=== PATIENT | female | born 1985 | race Caucasian/White ===

== ENCOUNTER → 2018-06-26 13:52 | Outpatient (CLI) | payer OTHER, SELFPAY ==
[2018-06-26 17:29] LABS: Chlamydia Trachomatis by PCR Negative (Negative); Neisserai gonorrhoeae by PCR Negative (Negative); Probe Check PASS; Sample Adequacy Control PASS; Specimen Processing Control PASS
== END ==
PROVIDERS: Visit Provider Obstetrics & Gynecology
DX: Z11.3 Encounter for screening for infections with a predominantly sexual mode of transmission (principal)
CPT/HCPCS: 87491; 87591

== ENCOUNTER → 2018-07-24 11:37 | Outpatient (CLI) | payer OTHER, SELFPAY ==
[2018-07-24 12:21] LABS: Color, Urine Yellow (Yellow); Glucose, Dipstick Normal (Normal); Ketone-Dipstick Negative (Negative); Leukocyte Esterase-Dipstick 100 /ul (Negative); Nitrite-Dipstick Negative (Negative); Occult Blood-Urine Negative /ul (Negative); Protein-Dipstick Negative (Negative); Urine Bilirubin Dipstick Negative (Negative); Urine Clarity Sl. Cloudy (Clear); Urine Urobilinogen Normal (Normal)
[2018-07-24 12:53] LABS: Absolute Lymphocyte Count 1.39 X10^3/ul (0.83-4.51); Absolute Neutrophil Count 8.5 X10^3/uL (2.0-7.7); Amphetamine Urine VISTA NEGATIVE (<1000 ng/mL); Barbiturate Urine VISTA NEGATIVE (< 200 ng/mL); Basophil# 0.03 X10^3/uL; Basophil% 0.3 % (0-1); Benzodiazepine Urine VISTA NEGATIVE (< 200 ng/mL); Cocaine Urine VISTA NEGATIVE (< 300 ng/mL); Ecstacy Urine VISTA NEGATIVE (< 500 ng/mL); Eosinophil# 0.17 X10^3/uL; Eosinophils% 1.6 % (0-5); Hematocrit 40.3 % (37-47); Hemoglobin 13.1 g/dl (12.0-15.0); Lymphocyte # 1.39 X10^3/ul (4.0); Lymphocyte % 12.9 % (19-41); Mean Corp Hgb Conc 32.5 g/gl (32-36); Mean Corpuscular Hgb 31.1 pg (27.0-32.0); Mean Corpuscular Volume 95.7 fL (81-99); Methadone Urine VISTA NEGATIVE (< 300 ng/mL); Monocyte# 0.71 X10^3/uL; Monocyte% 6.6 % (0-10); Neutrophil # 8.45 X10^3/uL (2.7-7.7); PCP Urine VISTA NEGATIVE (< 25 ng/mL); Platelet Count 251 K/mm3 (150-450); RBC Distribution Width CV 12.2 % (11.6-14.6); RBC Distribution Width SD 41.6 fl (35.1-43.9); Red Blood Count 4.21 M/mm3 (4.2-5.4); THC Urine VISTA NEGATIVE (< 50 ng/mL); Vista UDS pH Range 6; White Blood Count 10.8 K/mm3 (4.4-11.0)
[2018-07-24 12:57] LABS: POSITIVE COUNT NO; POSITIVE DIFFERENTIAL NO; POSITIVE MORPHOLOGY NO
[2018-07-24 13:27] LABS: Thyroid Stim Hormone (TSH) 2.13 uIU/mL (0.358-3.74)
[2018-07-24 14:04] LABS: HIV - WCH Non-Reactive (Nonreactive); Rubella IgG 186.6 IU/mL; Vitamin D,25 Hydroxy 25.8 ng/mL (29.95-100.01)
[2018-07-26 10:44] LABS: HEPATITIS B SURFACE AG Negative (Negative); Hep C Antibodies 0.1 s/co ratio (0.0-0.9); Toxoplasma Gondii IgG < 3.0 IU/mL (0.0-7.1)
[2018-07-28 01:31] LABS: Prenatal RPR NONREACTIVE (NONREACTIVE)
== END ==
PROVIDERS: Visit Provider Obstetrics & Gynecology
DX: Z34.81 Encounter for supervision of other normal pregnancy, first trimester (principal)
CPT/HCPCS: 36415; 80307; 81002; 82306; 84443; 85025; 86703; 86762; 86777; 86803; 87340

== ENCOUNTER 2018-10-14 19:18 | Emergency (ER) | payer OTHER, SELFPAY ==
[2018-10-14 19:19] VITALS: BP 105/63; PULSE 104; RESP 15; TEMP 36.7; BMI 25.4
[2018-10-14] MEDS: Ondansetron 4 MG/2 ML Vial IV (19:28)
[2018-10-14] MEDS: 0.9% Normal Saline 1,000 ML 1000 ML IV (19:54)
[2018-10-14] MEDS: Metoclopramide 10 MG/2 ML Vial 5 MG IV (19:55)
--- NOTE | 2018-10-14 20:15 | ED.VIS.GEN ---
History of Present Illness Chief Complaint: Nausea/Vomiting Informant: Patient Onset: Today - 1629 Context: Sudden Onset Timing: Continuous - Continuous sensation of nausea with vomiting Quality: Nausea and vomiting and pain Location: Epigastrium Current Severity: Presently no discomfort Maximum Severity: Moderate Worsened by: Vomiting Relieved by: Not vomiting Associated Symptoms: Second trimester Narrative: Patient is a 33-year-old female who presents with nausea and vomiting started 1630. She has had problems with nausea during but not vomiting. She had no complications or problems with her first . 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 She reports nasal congestion. She states she has history of allergies. Denies fever chills. She denies cough shortness of breath difficulty breathing. She denies dysuria or hematuria. She denies diarrhea. She denies rash. She denies intolerance to greasy or fried foods. There is no family history cholelithiasis. Prior similar symptoms: No Recent Illness/Hospitalization: No - Past Medical History (1) No significant past medical history Status: Acute Past Medical History - Allergies and Home Meds Allergies/Adverse Reactions: Allergies No Known Allergies Allergy (Verified 10/14/18 19:23) Primary Care Physician: Leila Parra MD [STAFF PHYSICIAN] - Past Medical History: None Surgical History: no surgical history Lives: Spouse/ Significant Other, With Family Smoking Status: Never smoker Alcohol: None Review of Systems General: Denies: Chills, Fever ENT: Reports: Rhinorrhea. Denies: Bilateral ear pain, Sore throat Respiratory: Denies: Dyspnea, Cough, Dyspnea on exertion Gastrointestinal: Reports: Abdominal pain, Nausea, Vomiting. Denies: Diarrhea, Constipation, Melena, Hematochezia, -, - Genitourinary: Reports: Frequency. Denies: Dysuria, Hematuria Musculoskeletal: Denies: Myalgias, Arthralgias, Neck pain, Back pain Skin: Denies: Rash Neurological: Denies: Headache, Weakness Hematologic: Denies: Easy bruising, Easy bleeding Allergy: Denies: Uticaria Physical Exam Vital Signs/Narrative: Vital Signs Temp Pulse Resp BP 10/14/18 19:19 98.0 F 104 H 15 105/63 Inital Vital Signs reviewed: Yes General: Well nourished, Well developed, No Acute Distress Head: Normocephalic, Atraumatic Eyes: Perrl, EOMI. Negative for: Pale conjunctiva, Scleral icterus, - ENT: TM's clear, Dry mucous membranes. Negative for: No rhinorrhea - Clear drainage noted with pale boggy nasal mucosa consistent with allergic rhinitis. Neck: Supple, Nontender, No lymphadenopathy, No JVD, - Cardiovascular: Regular rhythm, No murmurs, Normal S1, Normal S2, Tachycardia Respiratory: No distress, CTA bilaterally, Chest nontender Abdomen: Soft, Nondistended, Normal bowel sounds, No masses, Tender - Epigastric area. Negative for: Nontender, Guarding, Rebound tenderness, Hepatomegaly, Splenomegaly, Mass, Rovsig's sign, Ruffin's sign Back: Nontender. Negative for: CVA tenderness Extremities: Nontender, No edema Skin: Normal color, No rash Neurological: Alert, Oriented x3, Cranial nerves II-XII grossly intact, Normal Strength, Normal Sensation Psychological: Normal affect, Normal Mood Diagnostic/Tx/Re-eval - Medical Decision Making She received Zofran ODT in triage. IV was established he received 1 L of fluid. Since patient had no vomiting and will challenge patient with liquids. If she passes p.o. challenge will discharge with prescription for Zofran. Since nausea vomiting started a couple hours prior to presentation blood work was not obtained. Patient was able to drink a can of jori deion without emesis. She feels markedly better. Will discharge to home with appropriate home-going instructions ED Disposition - Plan for ED Patient: Disposition: Home or Assisted Living Diagnosis: Nausea and vomiting during prior to 22 weeks gestation Instructions: ED Nausea Vomiting Prescriptions: Ondansetron [Zofran Odt] 4 mg PO Q8H PRN PRN #10 tab PRN Reason: Nausea Referrals: Leila Prara MD [STAFF PHYSICIAN] - 1-2 Days if not improving
[2018-10-14 21:19] VITALS: RESP 18; O2SAT 98
== END 2018-10-14 21:19 | disposition home or self-care (01) ==
PROVIDERS: Emergency Provider Emergency Medicine
DX: O21.2 Late vomiting of pregnancy (principal); R10.13 Epigastric pain; Z3A.22 22 weeks gestation of pregnancy
CPT/HCPCS: 96361; 96374; 96375; 99283; J7030; A4216; J2405

== ENCOUNTER → 2018-11-16 16:29 | Outpatient (CLI) | payer OTHER, SELFPAY ==
[2018-11-16 17:08] LABS: Hematocrit 36.9 % (37-47); Hemoglobin 12.4 g/dl (12.0-15.0); Mean Corp Hgb Conc 33.6 g/gl (32-36); Mean Corpuscular Hgb 31.1 pg (27.0-32.0); Mean Corpuscular Volume 92.5 fL (81-99); Mean Platelet Vol. 10.9 fl (6.2-12.0); Platelet Count 215 K/mm3 (150-450); RBC Distribution Width CV 12.7 % (11.6-14.6); RBC Distribution Width SD 42.4 fl (35.1-43.9); Red Blood Count 3.99 M/mm3 (4.2-5.4)
[2018-11-16 17:09] LABS: Scan Indicated on CBC? Y/N NO
[2018-11-16 17:12] LABS: Glucose Challenge Gest 1H 50g 102 mg/dL (70-140)
== END ==
PROVIDERS: Visit Provider Obstetrics & Gynecology
DX: Z34.82 Encounter for supervision of other normal pregnancy, second trimester (principal)
CPT/HCPCS: 36415; 82950; 85027

== ENCOUNTER → 2019-01-15 17:37 | Outpatient (CLI) | payer OTHER, SELFPAY | PROVIDERS: Referring Provider Obstetrics & Gynecology; Visit Provider Obstetrics & Gynecology | DX: Z36.85 Encounter for antenatal screening for Streptococcus B (principal) | CPT/HCPCS: 87081 ==

== ENCOUNTER 2019-02-04 17:50 | Inpatient (IN) | payer OTHER, SELFPAY ==
[2019-02-04] VITALS (12 sets, daily range): BP systolic 87–116; BP diastolic 49–73; PULSE 81–93; RESP 16; TEMP 36.2–37.2; O2SAT 95–99; BMI 29.9
--- NOTE | 2019-02-04 18:05 | PCM.HP.OB ---
- Problem List (1) Breech presentation Status: Acute Qualifiers: Fetus number: single or unspecified fetus Qualified Code(s): O32.1XX0 - Maternal care for breech presentation, not applicable or unspecified History Date of Admission: 02/04/19 Final ARI: 02/10/19 Final ARI Source: US <20 weeks Gestational age: 39 Weeks and 1 Days History of this : This is a 34 year-old, G [2], P [1], at 39 1/7 weeks gestational age presents with c/o contractions x 1-2 hours. She has hx 3 hour labor prior. Medical History: Medical History (Last Reviewed 02/04/19 @ 19:54 by Valentina Guzman MD) Patient denies medical problems Z78.9 Surgical History: Surgical History (Last Reviewed 02/04/19 @ 19:54 by Valentina Guzman MD) Hx of tonsillectomy Z90.89 Allergies No Known Allergies Allergy (Verified 12/11/18 09:31) Home Medications: Home Medications No.52/Iron/FA/Dha [Lean Manufacturing Leader-Pnv-Dha Softgel] 1 each PO DAILY 10/14/18 Ranitidine [Zantac] 150 mg PO BID 02/04/19 Smoking Status: Never smoker Alcohol: None Number of Fetus(es): 1 - complete breech on US with JORDIN 18cm, anterior placenta on US NST - FHR Rate Baby A Baseline: 140 Variability:: Moderate Accelerations:: 15 x 15 Decelerations:: Variable NST Reactive:: Yes FHR Category:: Category II Uterine Activity:: 3/10 min History Past Pregnancies: Past Pregnancies Delivery Date GA/Weeks Outcome Route Weight Gender Labor Length Anesthesia Delivery Location 01/2012 39 Living [id number] F 3 Local [facility] Labs: Mom's Problem List Problem Status Onset Code Breech presentation Acute O32.1XX0 Mom's Labs & Results 02/04/19 02/04/19 18:15 18:15 WBC 12.4 H RBC 4.34 Hgb 13.6 Hct 40.1 MCV 92.4 MCH 31.3 MCHC 33.9 RDW Std Deviation 42.8 RDW Coeff of Juan 12.5 Plt Count 255 MPV 11.4 Immature Gran % (Auto) 1.500 H Neut % (Auto) 70.1 H Lymph % (Auto) 17.1 L [place] % (Auto) 8.7 Eos % (Auto) 2.1 Baso % (Auto) 0.5 Absolute Neuts (auto) 8.7 H Absolute Lymphs (auto) 2.11 Nucleated RBC % 0 Blood Type Pending Antibody Screen Pending Course Did the patient receive Yes care? Labs Blood Type: B RH: POSITIVE RPR/VDRL/Syphilis Nonreactive Rubella status Immune HbSAg Negative Date Done: 07/24/18 Chlamydia Negative Gonorrhea Negative HIV/AIDS Non-Reactive Group B Strep: Negative Current Obstetrical History Gestational Diabetes No Incompetent Cervix No Infertility No IUGR No Macrosomia No Hypertension/Pre-eclampsia No Placenta Previa/Abruption No PTL/PROM No Uterine anomaly No Oligohydramnios No Polyhydramnios No Multiple gestation No Past Medical History Asthma No Diabetes No Hypertension No Heart disease No Mitral valve prolapse No Neurologic/Seizure disorder/ No Migraines Kidney disease No Liver disease No Varicosities No Clotting disorders/Hx of DVT No Thyroid Dysfunction No Other medical diseases No Psychiatric disorders No Major trauma No Abnormal PAP smear Yes: Abnormal during this pregancy; No repeat PAP Sleep apnea No Mammogram in the last 2 years No Social History Marital Status: Alleged father Aaron Hx Smoking No Smoking Status Never smoker Expected Delivery Method: GIULIANA Section Physical Exam Vitals: AVSS General: Alert, Oriented x3, Cooperative, No apparent distress HEENT: Atraumatic, Normocephalic Cardiovascular: Regular rate, Regular Rhythm, Normal S1, Normal S2 Lungs: Clear to auscultation, Normal air movement Abdomen: Soft, Non Tender, Non-Distended, Gravid Extremities:: No edema Neurological: Neuro grossly intact Estimated gestational size: Appropriate for gestational size Presentation: Breech Cervix Dilation (cm): 2 Station: -2 Effacement (%): 60 Assessment/Plan All Active Problems (Last Reviewed 02/04/19 @ 19:54 by Valentina Guzman MD) No significant past medical history (Acute) Breech presentation (Acute) This is a 34 year-old, G [2], P [1], at 39 1/7 weeks gestational age in early labor with breech presentation -Recommend section, indications discussed with review of procedural benefit, risks including bleeding, infection, injury to abdominal organs including but not limited to bowel or bladder, scarring, future placenta accreta, VTE, need for other surgery including d&C or hysterectomy for life threatening bleeding. Also discussed ECV as alternative with discussion of how performed, success rate, risks including risk for failure, section, possibly emergently if ROM and cord prolapse or placental abruption or heart rate changes. Patient desires to proceed with section. Patient and spouse given opportunity to ask questions and questions answered to their satisfaction. -LARC declined.
[2019-02-04] MEDS: Lactated Ringers 1,000 ML 999 ML IV (18:15)
[2019-02-04] MEDS: Sodium Citrate/Citric Acid 30 ML UDC PO (18:17)
[2019-02-04 18:24] LABS: Absolute Lymphocyte Count 2.11 X10^3/uL (0.83-4.51); Absolute Neutrophil Count 8.7 X10^3/uL (2.0-7.7); Basophil# 0.06 X10^3/uL; Basophil% 0.5 % (0-1); Eosinophil# 0.26 X10^3/uL; Eosinophils% 2.1 % (0-5); Hematocrit 40.1 % (37-47); Hemoglobin 13.6 g/dL (12.0-15.0); Lymphocyte # 2.11 X10^3/ul (4.0); Lymphocyte % 17.1 % (19-41); Mean Corp Hgb Conc 33.9 g/dL (32-36); Mean Corpuscular Hgb 31.3 pg (27.0-32.0); Mean Corpuscular Volume 92.4 fL (81-99); Mean Platelet Vol. 11.4 fl (6.2-12.0); Monocyte# 1.08 X10^3/uL; Monocyte% 8.7 % (0-10); NRBC Flagged by Analyzer 0 % (0-5); Neutrophil # 8.66 X10^3/uL (2.7-7.7); Neutrophil % 70.1 % (47-70); Platelet Count 255 K/mm3 (150-450); RBC Distribution Width CV 12.5 % (11.6-14.6); RBC Distribution Width SD 42.8 fl (35.1-43.9); Red Blood Count 4.34 M/mm3 (4.2-5.4); White Blood Count 12.4 K/mm3 (4.4-11.0)
[2019-02-04] MEDS: Cefazolin 2 GM in 0.9% Normal Saline 100 ML IV (18:51)
--- NOTE | 2019-02-04 20:00 | PCM.OPRPT ---
Problem List (1) Breech presentation Status: Acute Qualifiers: Fetus number: single or unspecified fetus Qualified Code(s): O32.1XX0 - Maternal care for breech presentation, not applicable or unspecified Report of Operation Date of Procedure: 02/04/19 Pre-Operative Diagnosis: 39 1/7wga, labor, complete breech presentation Post-Operative Diagnosis: 39 1/7wga, labor, complete breech presentation Surgery/Procedure Performed:: Primary low transverse section Description of Surgical Findings:: Normal tubes and ovaries MALE , 3149g (6lb 15oz) senior lead java developer: Maria R Freire Type of Anesthesia:: Spinal Anesthesiologist: Mary Haro Specimen's removed: placenta to WP Estimated Blood Loss (mL): 900 Fluids Replaced: 1500 ml Description of Procedure: The patient was taken to the operating room and spinal analgesia was administered. She is placed in a dorsal supine position with left lateral tilt. The perineum and abdomen were prepped and draped in sterile fashion. And the spinal was found to be adequate. A Pfannenstiel incision was made using a scalpel and brought down to incise the subcutaneous tissue and rectus fascia at the midline. Subcutaneous tissue was bluntly dissected off the fascia laterally. The fascial incision was dissected laterally and cephalad using curved Marie scissors. The superior leaflet of the rectus fascia was grasped using Jocelyn clamps and bluntly dissected and sharply dissected from the underlying rectus muscle. In a similar fashion the inferior rectus fascia was dissected from the underlying muscle. The rectus muscles were bluntly at the midline. The peritoneum was identified and entered [sharply]. The bladder blade was placed into the abdomen and the vesicouterine peritoneal fold identified. The fold was incised and a bladder flap created. Bladder blade was then repositioned to the abdomen. A low transverse hysterotomy was made using the [Metzenbaum scissors] to level of the membranes. The hysterotomy was extended bluntly cephalad and caudad. The membranes were then ruptured revealing clear fluid. The extremities were grasped and delivered via the hysterotomy, was placed over the sacrum and the was delivered to the level of the shoulders. The right and left arms were swept and the head delivered spontaneously. The infant mouth was suctioned. Cord was doubly clamped and cut and the was passed to the waiting nursery personnel. The placenta was expressed and appeared intact on inspection. Uterus of was cleared of debris. The hysterotomy was then repaired using 0 Vicryl running lock suture. A second imbricating layer was also placed for additional hemostasis. The bladder blade was removed. The anterior cul-de-sac was cleared of debris. The peritoneum and rectus muscles were reapproximated using 2-0 Vicryl running suture. The rectus fascia was closed using 0 stratafix running suture. Small capillary bleeding the subcutaneous tissue was controlled using the Bovie device. The subcutaneous tissue was reapproximated using 2-0 Vicryl. The skin was closed using 4-0 Monocryl subcuticularly the CLEARANCE DIVER under my supervision. A Mepilex occlusive dressing was placed over the incision. The fundus was firm. The patient was then transferred to the recovery room without complication. Sponge, instrument, and needle counts were correct ?2. - Complications None - Admit VTE Documentation VTE Present on Admission: No VTE Mechan Device Prophylaxis: SCD's VTE Pharm Prophylaxis ordered?: No
[2019-02-04] MEDS: Oxytocin 30 units/NS 500 ml 30 UNITS/500 ML IV.SOLN 167 UNITS IV (20:10)
--- NOTE | 2019-02-04 20:14 | DCINST_ITS ---
<Leila Parra - Last Filed: 02/05/19 07:53> Additional Instructions: If you experience any of the following, contact your healthcare provider. * Bleeding that soaks a pad every hour for 2 hours * Fever 100.4 or higher * Unrelieved incision or abdominal pain * Swelling, redness, discharge or bleeding from your incision or epi siotomy site * Your incision begins to separate * Problems urinating (including inability to urinate or burning while urinating). * Visual changes * Severe headache * Flu-like symptoms * Pain or redness in one of both of your breasts * Pain, warmth, tenderness or swelling in your legs, especially the calf area * Frequent nausea and vomiting * Symptoms of depression or anxiety If you experience any of the following, call 911 or go to the nearest Emergency Room. * Chest pain * Problems breathing * Seizure activity * Partial or complete paralysis of a body part, slurred speech, weakness or drooping of the face, or a sudden inability to walk or hold your balance Allergies/Adverse Reactions: Allergies No Known Allergies Allergy (Verified 12/11/18 09:31) Medications to take at Discharge No.52/Iron/FA/Dha [Male Model-Pnv-Dha Softgel] 1 each PO DAILY 10/14/18 Ibuprofen [Motrin] 600 mg PO Q8H PRN PRN #30 tab 02/04/19 Oxycodone [Oxyir] 5 mg PO Q6H PRN PRN 3 Days #15 tab 02/05/19 Polyethylene Glycol 3350 [Miralax] 17 gm PO DAILY PRN #14 packet 02/05/19 The following prescriptions were given: Polyethylene Glycol 3350 [Miralax] 17 gm PO DAILY PRN #14 packet PRN Reason: Constipation Transmission Status: Received by [id number] Ibuprofen [Motrin] 600 mg PO Q8H PRN PRN #30 tab PRN Reason: Pain Transmission Status: Received by [id number] Oxycodone [Oxyir] 5 mg PO Q6H PRN PRN 3 Days #15 tab PRN Reason: Mod-Severe Pain (4-10/10) Transmission Status: Received by [id number] Follow-Up: Call to make an appointment with your doctor for an incision check in 1-2 weeks. You will also need a 6 week post- follow up appointment. Test results from this visit will be discussed in further detail at your follow- up appointment, if applicable. Primary Care Physician: Care Physician,No Primary [Primary Care Provider] - Proposed Discharge Date: 02/07/19 <Valentina Guzman - Last Filed: 02/07/19 07:51> Discharge Diet: No Restrictions Discharge Activity: Return to Normal Activity, May not drive while taking narcotic pain medications., May Shower May resume sexual activity in: 4-6 weeks Lifting Restrictions: 10 lb Suture Line Care: Avoid Pulling/Pushing Remove Dressing in (days):: 3 Cleanse incision/area with: Soap & Water Additional Instructions: If you experience any of the following, contact your healthcare provider. * Bleeding that soaks a pad every hour for 2 hours * Fever 100.4 or higher * Unrelieved incision or abdominal pain * Swelling, redness, discharge or bleeding from your incision or episiotomy site * Your incision begins to separate * Problems urinating (including inability to urinate or burning while urinating). * Visual changes * Severe headache * Flu-like symptoms * Pain or redness in one of both of your breasts * Pain, warmth, tenderness or swelling in your legs, especially the calf area * Frequent nausea and vomiting * Symptoms of depression or anxiety If you experience any of the following, call 911 or go to the nearest Emergency Room. * Chest pain * Problems breathing * Seizure activity * Partial or complete paralysis of a body part, slurred speech, weakness or drooping of the face, or a sudden inability to walk or hold your balance Follow-Up: Call to make an appointment with your doctor for an incision check in 1-2 weeks. You will also need a 6 week post- follow up appointment. Test results from this visit will be discussed in further detail at your follow- up appointment, if applicable. Please Follow Up With: Leila Parra MD When: 1-2 weeks
[2019-02-04] MEDS: Lactated Ringers 1,000 ML 100 ML IV (23:09)
[2019-02-05] VITALS (14 sets, daily range): BP systolic 83–100; BP diastolic 44–65; PULSE 81–96; RESP 16–18; TEMP 36.9–38.2; O2SAT 97–100
[2019-02-05] MEDS: Ketorolac 30 MG/ML Syringe IV ×4 (02:17→23:01)
--- NOTE | 2019-02-05 02:54 | NURSING ---
mother not warm to touch, verifying temp orally, 98.6
--- NOTE | 2019-02-05 04:26 | NURSING ---
Indwelling urinary catheter present. WNL.
[2019-02-05 04:48] LABS: Hemoglobin 11.6 g/dL (12.0-15.0); Mean Corp Hgb Conc 33.1 g/dL (32-36); Mean Corpuscular Hgb 31.1 pg (27.0-32.0); Mean Corpuscular Volume 93.8 fL (81-99); Mean Platelet Vol. 10.7 fl (6.2-12.0); Platelet Count 191 K/mm3 (150-450); RBC Distribution Width CV 12.7 % (11.6-14.6); RBC Distribution Width SD 43.9 fl (35.1-43.9); Red Blood Count 3.73 M/mm3 (4.2-5.4); White Blood Count 16.7 K/mm3 (4.4-11.0)
--- NOTE | 2019-02-05 07:48 | PCM.PN.OB ---
Patient Problems: Active and Suspected Problems (Last Reviewed 02/04/19 @ 19:54 by Valentina Guzman MD) Breech presentation (Acute) Subjective: POD#1 Primary C Section Breech Doing well. Pain control adequate. Has had N/V with Vicodin prior. Breast feeding. Baby is doing well. Asking about showering, activity restrictions, return to work. - Physical Exam General: Alert, Oriented x3, Cooperative, No apparent distress HEENT: Atraumatic, EOMI Neck: Supple Abdomen: Soft - Minimally tender c/w postop status. Skin: Incision - Mepilex CDI. No shadow drainage. Psych/Mental Status: Normal Affect Vital Signs Temp Pulse Resp BP Pulse Ox 98.4 F 92 18 88/51 L 97 02/05/19 04:11 02/05/19 07:06 02/05/19 07:06 02/05/19 04:11 02/05/19 07:06 Oxygen Delivery Method Room Air Weight: 74.389 kg Body Mass Index (BMI) 29.9 Intake and Output for Last 24 Hours 02/03/19 02/04/19 02/05/19 23:59 23:59 23:59 Intake Total 2707.72 / 2707.72 708.33 / 708.33 Output Total 2250 / 2250 1999 / 1999 Balance 457.72 / 457.72 -1291.67 / -1291.67 Laboratory Tests Past 24 Hrs 02/04/19 02/04/19 02/05/19 18:15 18:15 04:30 WBC 12.4 H 16.7 H RBC 4.34 3.73 L Hgb 13.6 11.6 L Hct 40.1 35.0 L MCV 92.4 93.8 MCH 31.3 31.1 MCHC 33.9 33.1 RDW Std Deviation 42.8 43.9 RDW Coeff of Juan 12.5 12.7 Plt Count 255 191 MPV 11.4 10.7 Immature Gran % (Auto) 1.500 H Neut % (Auto) 70.1 H Lymph % (Auto) 17.1 L [place] % (Auto) 8.7 Eos % (Auto) 2.1 Baso % (Auto) 0.5 Absolute Neuts (auto) 8.7 H Absolute Lymphs (auto) 2.11 Nucleated RBC % 0 Blood Type B POSITIVE Antibody Screen NEGATIVE Medical Necessity - Tobacco Use Smoking Status: Never smoker Assessment/Plan All Active Problems (Last Reviewed 02/04/19 @ 19:54 by Valentina Guzman MD) No significant past medical history (Acute) Breech presentation (Acute) POD#1 Breech presentation, Primary C section Doing well. Inc diet and activity as tolerated. Begin po meds. D/C Bland later today for voiding trial. S/L IV for continued Toradol. Continue routine postop care. May try abdominal binder. Reviewed return to usual activities.
[2019-02-05] MEDS: 0.9% Saline Lock 10 ML Syringe IV (08:52)
[2019-02-05] MEDS: Senna/Docusate Sodium 1 Tablet PO (08:52)
--- NOTE | 2019-02-05 10:10 | NURSING ---
Patient was asymptomatic, denies any dizziness
[2019-02-05] MEDS: Famotidine 20 MG Tablet PO ×2 (11:37→23:20)
[2019-02-05] MEDS: Prenatal Vits Tablet 1 TABLET PO (11:37)
[2019-02-06 02:00] VITALS: BP 94/57; PULSE 86; RESP 16; TEMP 37
[2019-02-06] MEDS: Ketorolac 30 MG/ML Syringe IV ×3 (03:56→17:12)
--- NOTE | 2019-02-06 08:04 | PCM.PN.OB ---
Patient Problems: Active and Suspected Problems (Last Reviewed 02/04/19 @ 19:54 by Valentina Guzman MD) Breech presentation (Acute) Subjective: POD#2 Primary C section for breech presentation, labor. More cramping and notes inc pain with movement and out of bed. Breast feeding. Overall feeling better today. Not using abdominal support band yet. - Physical Exam General: Alert, Oriented x3, Cooperative, No apparent distress HEENT: Atraumatic, EOMI Abdomen: Soft - Fundus firm moderately tender c/w postop status. Inferior to umbilicus Skin: Incision - Mepilex CDI Neurological: Cranial nerves II-XII grossly intact Psych/Mental Status: Normal Affect Vital Signs Temp Pulse Resp BP Pulse Ox 98.6 F 86 16 94/57 L 98 02/06/19 02:00 02/06/19 02:00 02/06/19 02:00 02/06/19 02:00 02/05/19 20:00 Oxygen Delivery Method Room Air Weight: 74.389 kg Body Mass Index (BMI) 29.9 Intake and Output for Last 24 Hours 02/04/19 02/05/19 02/06/19 23:59 23:59 23:59 Intake Total 2707.72 / 2707.72 985.00 / 985.00 Output Total 2250 / 2250 3950 / 3950 Balance 457.72 / 457.72 -2965.00 / -2965.00 Medical Necessity - Tobacco Use Smoking Status: Never smoker Assessment/Plan All Active Problems (Last Reviewed 02/04/19 @ 19:54 by Valentina Guzman MD) No significant past medical history (Acute) Breech presentation (Acute) POD#2 Breech presentation, Primary C section Stable postop. Continue routine postop care. Plan dischg home for 02/07/19
[2019-02-06 09:15] VITALS: BP 92/55; PULSE 66; RESP 18; TEMP 36.6; O2SAT 97
[2019-02-06] MEDS: Acetaminophen 500 MG Tablet 1000 MG PO (09:25)
[2019-02-06] MEDS: Prenatal Vits Tablet 1 TABLET PO (10:46)
[2019-02-06] MEDS: 0.9% Saline Lock 10 ML Syringe IV ×2 (10:46→17:12)
[2019-02-06] MEDS: Famotidine 20 MG Tablet PO ×2 (11:39→21:53)
[2019-02-06 15:10] VITALS: BP 91/62; PULSE 68; RESP 16; TEMP 37.1; O2SAT 97
[2019-02-06 19:00] VITALS: BP 90/55; PULSE 69; RESP 16; TEMP 36.9
[2019-02-07 02:00] VITALS: BP 103/74; PULSE 73; RESP 16; TEMP 37
[2019-02-07] MEDS: Acetaminophen 500 MG Tablet 1000 MG PO (02:43)
--- NOTE | 2019-02-07 06:20 | NURSING ---
Reviewed and agreed with Steffanie Angeles RN charting.
--- NOTE | 2019-02-07 07:55 | NURSING ---
pt's skin distal to umbilicus and proximal to mepilex dressing red and irritated. pt states it itches. Dr. Parra present and notified. mepilex dressing removed per Dr. Parra and replaced with telfa and paper tape. pt told per Dr. Parra to apply hydrocortisone cream to area
[2019-02-07] MEDS: Hydrocortisone 2.5% Crm 1 APPLIC TOPICAL (08:09)
--- NOTE | 2019-02-07 08:15 | PCM.PN.OB ---
Patient Problems: Active and Suspected Problems (Last Reviewed 02/04/19 @ 19:54 by Valentina Guzman MD) Breech presentation (Acute) Subjective: Pain well controlled, tolerating diet well, passing flatus, has had 2 bowel movements; itching and redness noted above incision dressing, worse last night, improving today; well; looking forward to discharge home Objective: Fundus firm, midline, u/1, lochia scant; ncision SAWYER, D/I, well approximated, no erythema or edema; skin at panty line mildly irritated; - Physical Exam General: Alert, Oriented x3, Cooperative, No apparent distress HEENT: PERRLA, EOMI Oral: Moist Mucosa Neck: Supple Lungs: Clear to auscultation, Normal air movement Cardiovascular: Regular rate, Regular Rhythm Abdomen: Bowel Sounds Present, Soft, Non Tender, Non-Distended Extremities: No edema, No Calf Tenderness Musculoskeletal: No Tenderness to Palpation of Joints or Extremities Neurological: Cranial nerves II-XII grossly intact, Deep Tendon Reflexes 2+/4 and Symmetrical Vital Signs Temp Pulse Resp BP Pulse Ox 98.6 F 73 16 103/74 97 02/07/19 02:00 02/07/19 02:00 02/07/19 02:00 02/07/19 02:00 02/06/19 15:10 Oxygen Delivery Method Room Air Weight: 164 lb Body Mass Index (BMI) 29.9 Intake and Output for Last 24 Hours 02/05/19 02/06/19 02/07/19 23:59 23:59 23:59 Intake Total 985.00 / 985.00 Output Total 3950 / 3950 Balance -2965.00 / -2965.00 Medical Necessity - Tobacco Use Smoking Status: Never smoker Assessment/Plan All Active Problems (Last Reviewed 02/04/19 @ 19:54 by Valentina Guzman MD) No significant past medical history (Acute) Breech presentation (Acute) Assessment: POD #3, normal involution, incision healing well; mild skin irritation above site of previous dressing, resolving; well Plan: Cortisone cream to skin irritation PRN Discharge instructions discussed Discharge home today RTO two weeks for follow up
--- NOTE | 2019-02-07 08:22 | PCM.DC.SUM ---
Discharge Date and Diagnosis - Problem List Patient Problems: Active and Suspected Problems (Last Reviewed 02/04/19 @ 19:54 by Valentina Guzman MD) Breech presentation (Acute) Date of Admission: 02/04/19 Date of Discharge: 02/07/19 - Primary Discharge Diagnosis Active and Suspected Problems (Last Reviewed 02/04/19 @ 19:54 by Valentina Guzman MD) Breech presentation (Acute) Hospital Course and Treatment Operations: - - Primary breech presentation, labor Summary of Care Provided: The patient is a 34 year old admitted with breech presentation in labor at 39w 1d; primary c section; procedure uncomplicated, delivered a brand viable make; normal post operative course; preoperative Hgb 13.6 g/dl, postoperative 11.6g/dl. Mild skin reaction above site of abdominal dressing resolving; Discharge home POD #3 in stable condition Patient Problems: Active and Suspected Problems (Last Reviewed 02/04/19 @ 19:54 by Valentina Guzman MD) Breech presentation (Acute) - Physical Exam Vital Signs Temp Pulse Resp BP Pulse Ox 98.6 F 73 16 103/74 97 02/07/19 02:00 02/07/19 02:00 02/07/19 02:00 02/07/19 02:00 02/06/19 15:10 Oxygen Delivery Method Room Air Weight: 164 lb Body Mass Index (BMI) 29.9 Intake and Output for Last 24 Hours 02/05/19 02/06/19 02/07/19 23:59 23:59 23:59 Intake Total 985.00 / 985.00 Output Total 3950 / 3950 Balance -2965.00 / -2965.00 Discharge Diet: No Restrictions Discharge Activity: Return to Normal Activity, May not drive while taking narcotic pain medications., May Shower May resume sexual activity in: 4-6 weeks Suture Line Care: Avoid Pulling/Pushing Remove Dressing in (days):: 3 Cleanse incision/area with: Soap & Water Home Medications: Medications to take at Discharge No.52/Iron/FA/Dha [Rubber Calender Helper-Pnv-Dha Softgel] 1 each PO DAILY 10/14/18 Ibuprofen [Motrin] 600 mg PO Q8H PRN PRN #30 tab 02/04/19 Oxycodone [Oxyir] 5 mg PO Q6H PRN PRN 3 Days #15 tab 02/05/19 Polyethylene Glycol 3350 [Miralax] 17 gm PO DAILY PRN #14 packet 02/05/19 Following Prescrptions Were Given to Patient: Polyethylene Glycol 3350 [Miralax] 17 gm PO DAILY PRN #14 packet PRN Reason: Constipation Transmission Status: Received by [id number] Ibuprofen [Motrin] 600 mg PO Q8H PRN PRN #30 tab PRN Reason: Pain Transmission Status: Received by [id number] Oxycodone [Oxyir] 5 mg PO Q6H PRN PRN 3 Days #15 tab PRN Reason: Mod-Severe Pain (4-03/01) Transmission Status: Received by [id number] Primary Care Physician: Care Physician,No Primary [Primary Care Provider] - Please Follow Up With: Leila Parra MD When: 1-2 weeks Medical Necessity - Tobacco Use Smoking Status: Never smoker Meaningful Use Info Meaningful Use Diagnoses (Choose all that apply): None applicable
[2019-02-07 08:40] VITALS: BP 104/72; PULSE 67; RESP 16; TEMP 37.1
== END 2019-02-07 11:25 | disposition home or self-care (01) | DRG 788 ==
LOC: WPOUT 17:53
PROVIDERS: Admitting Provider Obstetrics & Gynecology; Visit Provider Obstetrics & Gynecology
DX: O32.1XX0 Maternal care for breech presentation, not applicable or unspecified (principal); O76 Abnormality in fetal heart rate and rhythm complicating labor and delivery; Z3A.39 39 weeks gestation of pregnancy; Z37.0 Single live birth
CPT/HCPCS: 59025; 59050; 76815; 85025; 85027; 86850; 86900; 86901; 99218; J7120; A4216; G0378; J2405

== ENCOUNTER → 2019-03-19 17:17 | Outpatient (CLI) | payer OTHER, SELFPAY ==
[2019-02-04 17:54] VITALS: BMI 29.9
[2019-03-23 12:07] LABS: Age Gdln ACOG Testing 30-65 (.)
[2019-03-23 12:42] LABS: HPV APTIMA, High Risk Positive (Negative)
[2019-04-10 11:05] LABS: HPV Reflexed? YES, CHARGE PATIENT
== END ==
PROVIDERS: Referring Provider Obstetrics & Gynecology; Visit Provider Obstetrics & Gynecology
DX: Z12.4 Encounter for screening for malignant neoplasm of cervix (principal)
CPT/HCPCS: 87624; 88175; G0145

== ENCOUNTER → 2019-04-17 16:16 | Outpatient (CLI) | payer OTHER, SELFPAY ==
[2019-02-04 17:54] VITALS: BMI 29.9
--- NOTE | 2019-04-17 | IMM_PTH ---
PATIENT: OSWALD SWARTZ LOC: [facility] U#:[id number] AGE/SX: 40/F ROOM: RE04/17/[address]: Dr. Leila Parra MD : 1985 BED: DIS: SPEC #: [id number] RECD: 04/20/19 11:37 STATUS: KAYA REQ #: [id number] EVERT: 04/17/19 00:[address]: Leila Parra DEPT: IMMUNOHISTOCHEMISTRY RECD BY: Inga Orozco ENTERED: 04/20/19 11:38 SP TYPE: IMMUNO OTHR DR: No Primary Care Phys Tissues: A - Uterine cervix, NOS Procedures: p16 (initial) KI-67 (add) PHYSICIAN & INSTITUTION [place] [id number] SPECIMEN INFORMATION: Tissue Source: A - Cervix Clinical Info: ASCUS, positive HPV Specimen Number: [id number] CPT code: 58621, 23051 METHODOLOGY: Deparaffinized sections of prefer/formalin-fixed tissue or PAP/DQ stained slides are incubated with monoclonal/polyclonal antibodies/oligonucleotide probes. Localization is made via biotin free immunoperoxidase method. Appropriate controls are performed and reacted as expected. Results on target cell population are indicated in the following table: RESULTS: ANTIBODY / CLONE RESULT Block A P16 (E6H4) positive, focal block staining Ki-67 (30-9) positive, low These tests were developed and their performance characteristics determined by [facility]. They may not have been cleared or approved by the U.S. Food and Drug Administration. The FDA has determined that such clearance or approval is not necessary. The above immunohistochemical/dualISH markers are ordered and reviewed by the Pathologist. INTERPRETATION: A. Cervix, biopsy: Focal mild to moderate squamous dysplasia. SJ:baron 04/20/19 Case has been reviewed in consultation with Dr. Chua who concurs with the above diagnosis. IDC:AM
--- NOTE | 2019-04-17 14:00 | CER_PTH ---
PATIENT: OSWALD SWARTZ LOC: [facility]#:[id number] AGE/SX: 40/F ROOM: RE04/17/[address]: Dr. Leila Parra MD : 1985 BED: DIS: SPEC #: [id number] RECD: 04/17/19 15:56 STATUS: KAYA MARY #: [id number] EVERT: 04/17/19 14:[address]: Leila Parra DEPT: SURGICAL PATHOLOGY RECD BY: Kathrine Cassidy ENTERED: 04/18/19 09:25 SP TYPE: CERV OTHR DR: No Primary Care Phys Tissues: A - Uterine cervix, NOS B - Endocervical Procedures: Surgery Specimen Level IV HEADER OPERATION: Colposcopy PRE-OP DIAGNOSIS: ASCUS, positive HPV TISSUE SUBMITTED: A. Cervical, B. ECC MICROSCOPIC DIAGNOSIS A. Cervix, biopsy: Focal mild to moderate squamous dysplasia with HPV changes (HGSIL, DANIEL I-II). Chronic inflammation and squamous metaplasia. See comment. B. ECC: Fragments of benign endocervical epithelium, benign endocervical mucosa, blood and mucous, negative for dysplasia. EVE:baron 04/20/19 COMMENT A. Immunohistochemistry ([id number]) for surrogate HPV marker (p16) supports the above diagnosis. This case has been reviewed in consultation with Dr. Chua who concurs with the above diagnosis. MICROSCOPIC DESCRIPTION Slides are reviewed. GROSS DESCRIPTION A - Received in fixative is one container labeled with the patient's name and designated cervical. The specimen consists of two irregular fragments of light navas soft tissue that in aggregate measure 0.8 x 0.5 x 0.1 cm. The specimen is totally submitted in one cassette. B - Received in fixative is one container labeled with the patient's name and designated ECC. The specimen consists of multiple fragments of hemorrhagic mucoid tissue that in aggregate measure 1 x 1 x 0.1 cm. The specimen is totally submitted in one cassette. / EVE:baron 04/18/19 TC:5 CPT: 39035 x2
== END ==
PROVIDERS: Referring Provider Obstetrics & Gynecology; Visit Provider Obstetrics & Gynecology
DX: R87.610 Atypical squamous cells of undetermined significance on cytologic smear of cervix (ASC-US) (principal)
CPT/HCPCS: 88305; 88341; 88342

== ENCOUNTER 2019-05-08 10:57 | Day surgery (SDC) | payer OTHER, SELFPAY ==
[2019-02-04 17:54] VITALS: BMI 29.9
--- NOTE | 2019-04-30 08:06 | PCM.HPOB.BLA ---
History and Physical Date of Admission: 05/08/19 HISTORY OF PRESENT ILLNESS: Lauren Garcia, a 34 year old female 2 0 0 0 2, presented for: -- Here for LEEP cervical biopsy in OR due to abnormal paps and moderate cervical dysplasia on colposcopic biopsy. 06/06/18 pap: ASCUS cannot R/o higher gr lesion. 11/2017 pap ASCUS with + hi risk HPV (but not 16, 18) 02/2019 --pap ASCUS with +hi risk HPV. 04/17/19 COLPOSCOPY -- Mild to mod dysplasia. LEEP recommended. EB ALLERGIES: No Known Drug Allergies MEDICATIONS HISTORY: None. PAST HISTORY: Breast/Ovarian/Colon Cancers - MGM - ovarian cancer Infections - Bronchitis, Chicken pox and yeast inf Illnesses - constipation and seasonal allergies- mild Accidents - None History of Abnormal PAPS - pt had 2nd abnormal pap test on 06/06/2018 [facility]. Hospitalizations - Childbirth SURGICAL HISTORY: . 02/04/2019 Summer Rohith Wade MD (breech) MENSTRUAL HISTORY: LMP Known?- Approximate-Month Known Amount/Duration - 5-7-days, Regularity - Regular, Frequency - 28 days, LMP - 03/27/19 PAST PREGNANCIES: Total Pregnancies - 3; Full Term Pregnancies - 2; Premature - 0; Abortions, Induced - 0; Abortions, Spontaneous - 0; Ectopics - 0; Multiple Births - 0; Living Children - 2 FAMILY HISTORY: Mother - Type 2 Diabetes; Mother - Heart Attack; Maternal Grandparent - Ovarian Carcinoma; Paternal Grandparent - Ovarian Carcinoma; SOCIAL HISTORY: Alcohol Use - RARELY not while Smoking - Never Diet - balanced Diet, caffeine < 2 drinks per day and Tries for 1-2 liters daily Lifestyle - moderate stress lifestyle Exercise - none and Walk 20 min day. Seat Belt Use - always Employer - [employer] 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 Hours Worked - 40 hours per week Spouse-Sig Other Name - FOB - Nelson Spouse-Sig Other Occupation - Air Director [employer] Spouse-Sig Other Phone No - [phone] Children Name(s) - Mahin Ames ('19) Control - condoms PHYSICAL EXAMINATION CONSTITUTIONAL - NAD, well nourished, and well developed HEENT - Normocephalic, PERRLA, EOMI NECK - no nuchal rigidity EXTREMITIES - No edema or calf tenderness NEUROLOGICAL - Cranial nerves II-XII grossly intact PSYCHIATRIC - A and O to time, place, person, mood and affect ASSESSMENT: 1. Moderate Cervical Dysplasia 2. Cervical High Risk Human Papillomavirus (hpv) DNA Test Positive PLAN BY DIAGNOSIS: 1. Cervical High Risk Human Papillomavirus (hpv) DNA Test Positive and Moderate Cervical Dysplasia ASCUS paps, positive hi risk HPV cannot r/o higher grade lesion. Colposcopy showed mild to moderate dysplasia. LEEP in OR planned. Reviewed R,B,A, anticipated preop, operative and postop recovery including activity restrictions Plan to follow up with pap q 4 mo for next year to ensure adequate treatment / resolution
[2019-05-08] VITALS (7 sets, daily range): BP systolic 104–111; BP diastolic 54–70; PULSE 66–76; RESP 15–16; TEMP 36.2–36.9; O2SAT 99–100; BMI 24.7
[2019-05-08 11:30] LABS: Internal QC Validated? YES +Cl - CLEAR BKGD
[2019-05-08] MEDS: Lactated Ringers 1,000 ML 100 ML IV (11:35)
[2019-05-08 11:41] LABS: Pregnancy, Urine Negative Negative
--- NOTE | 2019-05-08 12:07 | DCINST_ITS ---
Discharge Diet: No Restrictions Discharge Activity: May Shower, May Take a Tub Bath Return to work on:: 05/09/19 May resume sexual activity in: 2 weeks Call your doctor if you observe: Fever of 101 or Higher, Inability to have a bowel movement, Uncontrolled pain Additional Instructions: You may take either Aleve, Tylenol, or ibuprofen for pain as needed. Allergies/Adverse Reactions: Allergies No Known Allergies Allergy (Verified 05/08/19 11:26) Medications to take at Discharge Ibuprofen [Motrin] 600 mg PO Q8H PRN PRN #30 tab 02/04/19 Multivitamin [Multiple Vitamins] 1 ea PO DAILY 05/04/19 Primary Care Physician: OSWALD SHERWOOD [Other] Test Results: Test results from this visit will be discussed in further detail at your follow- up appointment, if applicable. Please Follow Up With: Vickie Cordova CNM - [phone] When: 4 months for pap smear Proposed Discharge Date: 05/08/19
[2019-05-08] MEDS: FERRIC SUBSULFATE 8 GM SOLN (12:30)
[2019-05-08] MEDS: Iodine/Potassium Iodide 14ML Bottle 1 DRP TOPICAL (12:30)
--- NOTE | 2019-05-08 12:30 | CER_PTH ---
PATIENT: OSWALD SWARTZ LOC: [facility] U#:[id number] AGE/SX: 34/F ROOM: RE05/08/[address]: Dr. Leila Parra MD : 1985 BED: DIS: 05/08/2019 SPEC #: [id number] RECD: 05/08/19 14:58 STATUS: KAYA MARY #: [id number] EVERT: 05/08/19 12:[address]: Leila Parra DEPT: SURGICAL PATHOLOGY RECD BY: Kathrine Cassidy Tissues: UTERINE CERVIX LEEP Procedures: Surgery Specimen Level V HEADER OPERATION: LEEP cone PRE-OP DIAGNOSIS: Cervical dysplasia TISSUE SUBMITTED: LEEP cone cervical biopsy MICROSCOPIC DIAGNOSIS Cervix, LEEP cone biopsy: Negative for dysplasia. Focal chronic inflammation. See comment. EVE:baron 05/10/19 COMMENT Please make reference to previous specimen ([id number]) cervix, biopsy with diagnosis of focal mild to moderate squamous dysplasia with HPV changes. MICROSCOPIC DESCRIPTION Slides are reviewed. GROSS DESCRIPTION Received in fixative is one container labeled with the patient's name and designated LEEP cone cervical biopsy. The specimen consists of a navas, indurated piece of tissue consistent with LEEP conization measuring 2 x 1.5 cm and up to 1 cm in diameter. The specimen is not oriented. The cervical opening is slit-like in contour. No mucosal lesion is identified. The nonmucosal surface is inked black. The endocervical margin is inked blue. The specimen is radially sectioned and submitted entirely in four cassettes. Each cassette contains one quadrant. / SJ:baron 05/09/19 TC:3 CPT: 11689
--- NOTE | 2019-05-08 12:54 | PCM.OPRPT ---
Report of Operation Date of Procedure: 05/08/19 Pre-Operative Diagnosis: mild to moderate cervical dysplasia Post-Operative Diagnosis: Same Surgery/Procedure Performed:: LEEP cervical biopsy Description of Surgical Findings:: Lugol's nonstaining area noted at ectocervix. Nonparous appearing cervix no gross lesions noted. Type of Anesthesia:: Local MAC Anesthesiologist: Umer Gao MD Specimen's removed: LEEP cone biopsy Drains: red lester prior to surgery. 30 cc clear yellow urine Estimated Blood Loss (mL): 10 Fluids Replaced: LR Description of Procedure: After the risks, benefits, alternatives of the procedure were reviewed with the patient, informed consent was obtained. The patient was taken to the operating room with an IV running and placed in dorsal supine position on the operating table. She was given IV sedation, and then repositioned to the dorsal lithotomy position and was prepped and draped in the usual sterile fashion. A coated Graves speculum was placed, the cervix was identified and a 10 cc paracervical block of 1% lidocaine was instilled at the 2:00 4:00 8:00 and 10:00 positions. Lugol's was applied to the cervix. A Lugol's nonstaining area was noted at the ectocervix. A loop electrical excision procedure was then performed at a power of 50/50 with a blend of 1 between cut and coag. The biopsy was performed in a single pass. Excellent hemostasis was noted. A ball cautery was then used to cauterize the margins of the cervix at the biopsy site. Monsel's was applied to the cervix. Excellent hemostasis was noted. A sponge stick was used to remove any remaining tissue and blood from the upper vagina and cervix. All instruments were then removed from the vagina. The patient was awakened from her IV sedation, and then transferred to her recovery room bed in stable condition after tolerating the procedure well. Sponge, instrument, and needle counts were correct x2. Medications given intraoperatively included: 10 cc of 1% lidocaine as a paracervical block. For complete listing of medications given intraoperatively, please see the anesthesia record. - Complications none - Admit VTE Documentation VTE Present on Admission: No VTE Mechan Device Prophylaxis: SCD's VTE Pharm Prophylaxis ordered?: No
== END 2019-05-08 13:31 | disposition home or self-care (01) ==
LOC: SDC 10:57 → AC 10:58
PROVIDERS: Referring Provider Obstetrics & Gynecology; Visit Provider Obstetrics & Gynecology
PROC: 0UBC7ZZ Excision of Cervix, Via Natural or Artificial Opening (ICD-10-PCS; CPT 57522; principal; 2019-05-08 12:15)
DX: N87.1 Moderate cervical dysplasia (principal); R87.810 Cervical high risk human papillomavirus (HPV) DNA test positive
CPT/HCPCS: 00940; 57522; 81025; 88307; J7120

== ENCOUNTER → 2019-11-13 | Outpatient (CLI) | payer OTHER, SELFPAY ==
[2019-05-08 11:27] VITALS: BMI 24.7
[2019-11-19 13:37] LABS: HPV APTIMA, High Risk Negative (Negative)
== END | disposition home or self-care (01) ==
LOC: LABSPEC 11-14 08:43
PROVIDERS: Visit Provider Obstetrics & Gynecology
DX: N87.1 Moderate cervical dysplasia (principal)
CPT/HCPCS: 87624; 88175; G0145

== ENCOUNTER → 2020-06-18 | Outpatient (CLI) | payer OTHER, SELFPAY ==
[2019-05-08 11:27] VITALS: BMI 24.7
[2020-06-23 17:02] LABS: HPV APTIMA, High Risk Negative (Negative)
== END | disposition home or self-care (01) ==
LOC: LABSPEC 16:52
PROVIDERS: Visit Provider Obstetrics & Gynecology
DX: Z12.4 Encounter for screening for malignant neoplasm of cervix (principal)
CPT/HCPCS: 87624; 88175; G0145

== ENCOUNTER → 2021-10-30 | Outpatient (CLI) | payer OTHER, SELFPAY ==
[2021-10-30 10:42] LABS: Hematocrit 40.3 % (37-47); Hemoglobin 13.4 g/dL (12.0-15.0); Mean Corp Hgb Conc 33.3 g/dL (32-36); Mean Corpuscular Hgb 31.8 pg (27.0-32.0); Mean Corpuscular Volume 95.5 fL (81-99); Mean Platelet Vol. 11.3 fl (6.2-12.0); Platelet Count 236 K/mm3 (150-450); RBC Distribution Width CV 12.3 % (11.6-14.6); Red Blood Count 4.22 M/mm3 (4.2-5.4); White Blood Count 7.2 K/mm3 (4.4-11.0)
[2021-10-30 11:03] LABS: T3 Total - Triiodothyronine 1.17 ng/mL (0.6-1.81); Vitamin D,25 Hydroxy 42.6 ng/mL
[2021-10-30 11:08] LABS: Estradiol 132.2 pg/mL; Free T3 2.9 pg/mL (2.18-3.98); Glucose 88 mg/dL (74-106); T4 Free Direct 0.97 ng/dL (0.76-1.46); Thyroid Stim Hormone (TSH) 1.96 uIU/mL (0.358-3.74)
[2021-10-30 19:19] LABS: Progesterone Level 12.94 ng/mL (See Comment)
[2021-11-08 16:51] LABS: T3 Reverse 13.6 ng/dL (9.2-24.1)
== END | disposition home or self-care (01) ==
PROVIDERS: Visit Provider Obstetrics & Gynecology
DX: N92.6 Irregular menstruation, unspecified (principal); E03.9 Hypothyroidism, unspecified; E28.8 Other ovarian dysfunction; Z13.1 Encounter for screening for diabetes mellitus; E55.9 Vitamin D deficiency, unspecified; R73.03 Prediabetes
CPT/HCPCS: 36415; 82306; 82533; 82627; 82670; 82947; 83525; 84144; 84270; 84403; 84439; 84443; 84480; 84481; 84482; 85027; 82626

== ENCOUNTER → 2022-06-23 | Outpatient (CLI) | payer OTHER, SELFPAY ==
[2022-06-28 20:04] LABS: HPV APTIMA, High Risk Negative (Negative)
== END | disposition home or self-care (01) ==
PROVIDERS: Visit Provider Student in an Organized Health Care Education/Training Program
DX: Z12.4 Encounter for screening for malignant neoplasm of cervix (principal)
CPT/HCPCS: 87624; 88175; G0145